=== PATIENT | male | born 1980 | race Caucasian/White ===

== ENCOUNTER 2018-03-07 15:33 | Emergency (ER) | payer OTHER ==
--- NOTE | 2018-03-07 15:43 | CPEKG ---
Heart Rate: 70 RR Interval: 857 P-R Interval: 128 QRSD Interval: 100 QT Interval: 412 QTC Interval: 445 P [place]: 61 QRS [place]: 79 T Wave [place]: 50 EKG Severity - NORMAL ECG - EKG Impression: SINUS RHYTHM EKG Impression: ST ELEV, PROBABLE NORMAL EARLY REPOL PATTERN Electronically Signed By: Laney Botello 07-Mar-2018 16:27:53
--- NOTE | 2018-03-07 15:46 | EDPHY ---
H & P Stated Complaint: ekg changes Time Seen by Provider: 03/07/18 15:35 HPI/ROS: CHIEF COMPLAINT: Recurrent syncope, cardiac alert HISTORY OF PRESENT ILLNESS: 37-year-old male presents as a cardiac alert after syncopal episode. This afternoon he was skateboarding and fell off his skateboard. He landed onto his buttocks and had onset of severe right-sided back pain. He eventually got up into his car and had a beer and smokes marijuana. He then drove up to [place]. When he got out of the car he had severe recurrent pain. He became dizzy and then had a witnessed syncopal episode. Eventually he stood up again, felt dizzy and had a recurrent episode of syncope. On EMS arrival, he was hypotensive with a systolic pressure of 90. EKG was concerning for ACS, so a cardiac activation was called by EMS. He denies chest pain or shortness of breath. REVIEW OF SYSTEMS: complete 10 point ROS negative except at noted in the HPI - Personal History Current Tetanus Diphtheria and Acellular Pertussis (TDAP): Unsure - Medical/Surgical History PMH: Syncope Hx Asthma: No Hx Chronic Respiratory Disease: No Hx Diabetes: No Hx Cardiac Disease: No Hx Renal Disease: No Hx Cirrhosis: No Hx Alcoholism: No Hx HIV/AIDS: No Hx Splenectomy or Spleen Trauma: No - Social History Smoking Status: Current some day smoker Alcohol Use: Occasionally Drug Use: Marijuana - Physical Exam Exam: General Appearance: Alert, pleasant, well-appearing Eyes: Pupils equal and round, no conjunctival pallor or injection ENT, Mouth: Mucous membranes moist Neck: Normal inspection Respiratory: Lungs are clear to auscultation Cardiovascular: Regular rate and rhythm, no murmur Gastrointestinal: Abdomen is soft and nontender Back: Normal inspection, Tender over the right posterior pelvis, no midline tenderness Neurological: A&O, nonfocal exam Skin: Warm and dry, no rash Extremities: Nontender, no pedal edema Psychiatric: Mood and affect normal Constitutional: Initial Vital Signs Temperature (C) 36.6 C 03/07/18 15:36 Heart Rate 71 03/07/18 15:36 Respiratory Rate 16 03/07/18 15:36 Blood Pressure 115/57 L 03/07/18 15:36 O2 Sat (%) 98 03/07/18 15:36 O2 Delivery Mode Room Air Allergies/Adverse Reactions: No Known Drug Allergies Allergy (Verified 03/07/18 15:41) Home Medications: Medication Instructions Recorded Sildenafil Citrate 03/07/18 Medical Decision Making - Diagnostics EKG Interpretation: EKG interpreted by me reveals normal sinus rhythm, rate 70, J point elevation and prominent T-waves in the anterior leads, no reciprocal changes. 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 AP Upright Pelvis, at 3:46 PM: Bone mineralization is preserved. Each femoral head is well-seated within its respective acetabulum, and the femoral- acetabular joint spaces are normal. There is no acute fracture or dislocation. The ischial pubic rami are intact. The symphysis pubis is anatomically-aligned. There are a couple small phleboliths in the lateral left hemipelvis. Impression: No acute osseous abnormality. 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 AP Upright Pelvis, at 3:46 PM: Bone mineralization is preserved. Each femoral head is well-seated within its respective acetabulum, and the femoral- acetabular joint spaces are normal. There is no acute fracture or dislocation. The ischial pubic rami are intact. The symphysis pubis is anatomically-aligned. There are a couple small phleboliths in the lateral left hemipelvis. Impression: No acute osseous abnormality. ED Course/Re-evaluation: This patient presents with recurrent vasovagal episode related to severe pain after a fall. Blood pressure is now normal. EKG reveals J point elevation and no evidence of acute coronary syndrome. Echocardiogram ordered, Dr. Ortega will read. Echocardiogram read by Dr. Ortega is normal. Pt felt dizzy when walking to Xray. X-rays negative. Will give 1 L of normal saline and food and then reassess. He had breakfast this morning, but has not eaten since then. Feels much better after IV fluids and food. Ambulates with a steady gait and is no longer dizzy. Safe and stable for discharge home. Differential Diagnosis: Differential diagnosis includes though is not limited to cardiac dysrhythmia, CVA, TIA, GI bleed, sepsis, hypoglycemia. - Data Points Laboratory Results: Laboratory Results 03/07/18 15:30 03/07/18 15:30 03/07/18 03/07/18 15:30 15:30 WBC 8.48 10^3/uL 10^3/uL (3.80-9.50) RBC 4.21 10^6/uL L 10^6/uL (4.40-6.38) Hgb 13.0 g/dL L g/dL (13.7-17.5) Hct 37.6 % L % (40.0-51.0) MCV 89.3 fL fL (81.5-99.8) MCH 30.9 pg pg (27.9-34.1) MCHC 34.6 g/dL g/dL (32.4-36.7) RDW 12.2 % % (11.5-15.2) Plt Count 229 10^3/uL 10^3/uL (150-400) MPV 10.3 fL fL (8.7-11.7) Neut % (Auto) 73.7 % % (39.3-74.2) Lymph % (Auto) 19.8 % % (15.0-45.0) [place] % (Auto) 5.3 % % (4.5-13.0) Eos % (Auto) 0.7 % % (0.6-7.6) Baso % (Auto) 0.1 % L % (0.3-1.7) Nucleat RBC Rel Count 0.0 % % (0.0-0.2) Absolute Neuts (auto) 6.25 10^3/uL 10^3/uL (1.70-6.50) Absolute Lymphs (auto) 1.68 10^3/uL 10^3/uL (1.00-3.00) Absolute Monos (auto) 0.45 10^3/uL 10^3/uL (0.30-0.80) Absolute Eos (auto) 0.06 10^3/uL 10^3/uL (0.03-0.40) Absolute Basos (auto) 0.01 10^3/uL L 10^3/uL (0.02-0.10) Absolute Nucleated RBC 0.00 10^3/uL 10^3/uL (0-0.01) Immature Gran % 0.4 % % (0.0-1.1) Immature Gran # 0.03 10^3/uL 10^3/uL (0.00-0.10) Sodium 141 mEq/L mEq/L (135-145) Potassium 4.0 mEq/L mEq/L (3.5-5.2) Chloride 108 mEq/L mEq/L (97-110) Carbon Dioxide 24 mEq/l mEq/l (22-31) Anion Gap 9 mEq/L mEq/L (8-16) BUN 15 mg/dL mg/dL (7-23) Creatinine 0.9 mg/dL mg/dL (0.7-1.3) Estimated GFR > 60 Glucose 111 mg/dL H mg/dL (70-100) Calcium 9.3 mg/dL mg/dL (8.5-10.4) Troponin I < 0.012 ng/mL ng/mL (0.000-0.034) Medications Given: Discontinued Medications Sodium Chloride (Ns) 1,000 mls @ 0 mls/hr IV ONCE ONE; Wide Open PRN Reason: Protocol Stop: 03/07/18 16:40 Last Admin: 03/07/18 16:42 Dose: 1,000 mls Ketorolac Tromethamine (Toradol) 15 mg IVP EDNOW ONE Stop: 03/07/18 16:36 Last Admin: 03/07/18 16:38 Dose: 15 mg Departure - Departure Disposition: Home, Routine, Self-Care Clinical Impression: Syncope Qualifiers: Syncope type: vasovagal syncope Qualified Code(s): R55 - Syncope and collapse Condition: Good Instructions: Syncope (ED) Additional Instructions: Ibuprofen 600 mg 3 times daily while the pain persists. Drink plenty of fluids. Return for recurrent episodes or any concerns. Referrals: Paz Villeda MD [[facility] Primary Care Provider] - As per Instructions
[2018-03-07 16:03] LABS: PLATELET COUNT 229 10^3/uL (150-400)
--- NOTE | 2018-03-07 16:33 | ECHO ---
[email or web address] [id number] Main: [phone] Fax: Transthoracic Echocardiogram Name: ROSA MYERS MR#: [id number] Study Date: 03/07/2018 Study Time: 03:50 PM Date of : 1980 Age: 37 year(s) Height: ( ) Weight: ( ) BSA: Gender: Male Examination: Indication: Image Quality: Contrast: Requested by: Laney Botello BP: / Heart Rate: Rhythm: Indication: Procedure Staff Tarper: Cara Cam MAZIN Reading Physician: Renard Ortega MD Requesting Provider: Conclusions: Normal size left ventricle. Normal global systolic LV function. The ejection fraction is visually estimated to be 60 %. The mitral valve is normal in appearance and function. Mild mitral valve regurgitation is present. There is no aortic valve regurgitation. No aortic valve stenosis is present. Focal thickening of non coronary cusp.. The pulmonary artery pressure is normal. No old studies for comparison Measurements: Chambers Valvular Assessment AV/MV Valvular Assessment TV/PV Normal Normal Normal Name Value Range Name Value Range Name Value Range Ao Yas (2D): 2.8 cm (1.4 cm-2.6 cm) Visual EF: 60 % Continued Measurements: Chambers Valvular Assessment TV/PV Name Value Name Value RA Area: 15.9 cm2 CVP (est.): 5 mmHg Additional Vessels Name Value Patient: ROSA MYERS Study Date: 03/07/2018 Page 1 of 2 03:50 PM Ao Ascendin.3 cm Inferior Vena Cava: 1.6 cm Findings: Left Ventricle: Normal size left ventricle. No LV hypertrophy. Normal global systolic LV function. The ejection fraction is visually estimated to be 60 %. No regional wall motion abnormality. Normal diastolic LV function. Right Ventricle: Normal size right ventricle. Normal RV function. Left Atrium: The left atrium is normal in size. Right Atrium: The right atrium is normal in size. Mitral Valve: The mitral valve is normal in appearance and function. Mild mitral valve regurgitation is present. No mitral stenosis is present. Aortic Valve: There is no aortic valve regurgitation. No aortic valve stenosis is present. Focal thickening of non coronary cusp.. Tricuspid Valve: The tricuspid valve is normal in appearance and function. Trivial tricuspid valve regurgitation. The pulmonary artery pressure is normal. Pulmonic Valve: The pulmonic valve is normal in appearance and function. There is no pulmonic regurgitation seen. Aorta: The aorta is normal. Normal size aortic root measuring 2.8 cm. Normal size ascending aorta measuring 2.3 cm. IVC: The IVC is normal sized. Pericardium: No pericardial effusion. No pleural effusion. (No Signature Object) Patient: ROSA MYERS Study Date: 03/07/2018 Page 2 of 2 03:50 PM [id number]
[2018-03-07] MEDS ORDERED: KETOROLAC 15 MG/1 ML SDV IVP ONE (16:35)
[2018-03-07] MEDS ORDERED: NS 1,000 ML IV ONE (16:39)
[2018-03-07 17:51] VITALS: BP 106/48
== END 2018-03-07 18:07 | disposition home or self-care (01) ==
LOC: EDUNIT#
DX: R55 Syncope and collapse (principal); E86.9 Volume depletion, unspecified; F17.200 Nicotine dependence, unspecified, uncomplicated
CPT/HCPCS: 96374; J1885